=== PATIENT | female | born 1965 | race Two or more races ===

== ENCOUNTER 2024-09-25 08:20 | Emergency (ER) | payer OTHER ==
[~2024-09-25] VITALS: Ht 160 cm; Wt 90.7 kg
[2024-09-25] MEDS ORDERED: METFORMIN HCL500 M3 PO (08:49)
[2024-09-25] MEDS ORDERED: ALOGLIPTIN6.25 MG PO (08:49)
[2024-09-25] MEDS ORDERED: KETOROLAC TROMETHAMINE 60 MG VIAL IM ONE ×2 (10:09→10:15)
[2024-09-25 10:34] LABS: HEMATOCRIT 42.6 % (36.0-45.00); HEMOGLOBIN 14.4 g/dL (12.0-15.00); MEAN CELL VOLUME 87.8 fL (80.00-100.00); MEAN CORPUSCULAR HEMOGLOBIN 29.7 pg (27.00-32.0); MEAN CORPUSCULAR HGB CONC 33.9 g/dl (32.0-36.0); PLATELET COUNT 260 K/uL (150-450); RED BLOOD COUNT 4.85 M/uL (4.00-6.00); RED CELL DISTRIBUTION WIDTH 14.1 % (11.5-14.5)
[2024-09-25 11:06] LABS: CALCIUM 9.2 mg/dL (8.5-10.1); CREATININE SERUM 0.69 mg/dL (0.55-1.02); GFR 87.38; POTASSIUM 4.15 mEq/L (3.5-5.1)
[2024-09-25 11:09] LABS: PH,URINE 7.5 (5.0-8.0); URINE APPEARANCE Clear; URINE BILIRRUBIN Negative (NEGATIVE); URINE BLOOD Negative; URINE COLOR Yellow; URINE GLUCOSE Negative (NEGATIVE); URINE KETONE Negative (NEGATIVE); URINE LEUKOCYTE Negative; URINE NITRATE Negative; URINE PROTEIN Negative (NEGATIVE); URINE UROBILINOGEN 0.2 E.U./dl
[2024-09-25 11:10] LABS: URINE BACTERIA 205.5 uL (0.0-1933); URINE EPITHELIAL CELLS 7.9 uL (0.0-38.8)
[2024-09-25 11:28] LABS: URINE CAST 0.14 uL (0.0-1.40)
== END 2024-09-25 12:48 ==
LOC: ER 08:23
PROVIDERS: General Practice
DX: R10.9 Unspecified abdominal pain (principal); D25.9 Leiomyoma of uterus, unspecified